=== PATIENT | male | born 1985 | race Caucasian/White ===

== ENCOUNTER 2019-07-17 19:00 | Emergency (ER) | payer BC ==
[2019-07-17 21:27] VITALS: O2SAT 95
[2019-07-17 22:05] VITALS: BP 131/83; TEMP 97.5
== END 2019-07-17 22:05 | disposition home or self-care (01) ==
LOC: ER 19:00
DX: R10.31 Right lower quadrant pain (principal); J45.909 Unspecified asthma, uncomplicated; Z88.0 Allergy status to penicillin

== ENCOUNTER → 2020-07-01 | Outpatient (CLI) | payer BC ==
--- NOTE | 2020-07-01 12:09 | MRI ---
MRI right shoulder without contrast INDICATION: Chronic shoulder pain constant TECHNIQUE: Noncontrast MR imaging right shoulder FINDINGS: No bicep rupture or dislocation. Subscapularis is intact. No advanced arthrosis of the AC joint or glenohumeral joint Mild subacromial and subdeltoid bursitis Interstitial tendinosis supraspinatus and infraspinatus. Undersurface and interstitial insertional partial tear supraspinatus with adjacent reactive edema anterior greater tuberosity. This tear approaches 50% partial-thickness. No retraction. Minimal grade 1 marbling throughout the rotator cuff muscle bellies without advanced atrophy. IMPRESSION: Insertional partial tear supraspinatus approaching 50% partial-thickness with adjacent reactive marrow edema suggesting a symptomatic partial tear. Mild bursitis No complete rotator cuff retraction or advanced atrophy Electronically signed by: Edgar Turcios MD 07/01/2020 12:08 PM CDT
== END ==
LOC: MRI 08:57
PROVIDERS: ATTEND Orthopaedic Surgery Sports Medicine
DX: S46.811A Strain of other muscles, fascia and tendons at shoulder and upper arm level, right arm, initial encounter (principal); M75.51 Bursitis of right shoulder; R60.9 Edema, unspecified